=== PATIENT | male | born 1975 | race Caucasian/White ===

== ENCOUNTER 2020-08-22 20:01 | Emergency (ER) | payer MEDICARE, MEDICAID ==
[~2020-08-22] VITALS: Ht 182.9 cm; Wt 158.8 kg
[2020-08-22] MEDS ORDERED: HYDROCHLOROTHIA25 M2 PO (20:17)
[2020-08-22] MEDS ORDERED: LEXAPRO 10 MG T10 M2 PO (20:17)
[2020-08-22] MEDS ORDERED: TRAMADOL 50 MG50 MG PO (22:07)
[2020-08-22 22:31] VITALS: BP 118/56
== END 2020-08-22 22:32 | disposition home or self-care (01) ==
LOC: M.ERS 20:01
DX: M25.461 Effusion, right knee (principal); Z88.6 Allergy status to analgesic agent; Z88.8 Allergy status to other drugs, medicaments and biological substances; Z79.899 Other long term (current) drug therapy